=== PATIENT | male | born 1955 | race Caucasian/White ===

== ENCOUNTER 2019-05-20 20:53 | Inpatient (IN) | payer MEDICARE ==
[~2019-05-20] VITALS: Ht 172.7 cm; Wt 75.7 kg
[2019-05-20] MEDS ORDERED: LORAZEPAM 2MG/ML CPJ IV STA (23:44)
[2019-05-20] MEDS ORDERED: ONDANSETRON HCL 4MG/2ML INJ IV STA (23:44)
[2019-05-21] VITALS (15 sets, daily range): BP systolic 101–148; BP diastolic 21–83
[2019-05-21 00:28] LABS: HEMATOCRIT. 31.6 % (42.0-52.0); HEMOGLOBIN. 10.7 g/dL (14.0-18.0); MEAN CORPUSCULAR HEMOGLOBIN 32.9 pg (28.0-32.0); MEAN CORPUSCULAR VOLUME 97.1 fL (80.0-94.0); MEAN PLATELET VOLUME 8.8 fl (7.4-10.4); PLATELET 58 x1000/uL (130-400); RED BLOOD CELL COUNT 3.26 mill/uL (4.7-6.1); RED CELL DISTRIBUTION WIDTH 18.7 % (11.6-14.6)
[2019-05-21 00:33] LABS: INR 1.3; PROTHROMBIN TIME 14.4 sec (9.6-11.0)
[2019-05-21 00:34] LABS: CHLORIDE 96 mEq/L (98-107)
[2019-05-21 00:39] LABS: ETHANOL BLOOD < 10 mg/dL
[2019-05-21 00:58] LABS: PLATELET ESTIMATE MARKEDLY DECREASED
[2019-05-21 01:16] LABS: CLARITY URINE CLEAR (CLEAR); COLOR URINE DARK YELLOW (YELLOW); KETONES URINE NEGATIVE (NEGATIVE); LEUKOCYTE ESTERASE URINE TRACE (NEGATIVE); NITRITE URINE NEGATIVE (NEGATIVE); OCCULT BLOOD URINE 3+ (NEGATIVE); PROTEIN URINE 3+ (NEGATIVE); SPECIFIC GRAVITY URINE 1.021 (1.005-1.030)
[2019-05-21 01:26] LABS: *AMPHETAMINES SCREEN URINE NEGATIVE (NEGATIVE); *BARBITURATES SCREEN URINE NEGATIVE (NEGATIVE)
[2019-05-21 01:28] LABS: *BENZODIAZEPINES SCREEN URINE NEGATIVE (NEGATIVE); *COCAINE SCREEN URINE NEGATIVE (NEGATIVE); METHADONE URINE SCREEN NEGATIVE (NEGATIVE); OPIATES URINE SCREEN NEGATIVE (NEGATIVE); PHENCYCLIDINE URINE SCREEN NEGATIVE (NEGATIVE)
[2019-05-21 01:29] LABS: CANNABINOID URINE SCREEN NEGATIVE (NEGATIVE)
[2019-05-21] MEDS ORDERED: CEFTRIAXONE 1 G PREMIX 50 ML IV ONE (01:45)
[2019-05-21] MEDS ORDERED: METRONIDAZOLE 500 MG PREMIX 100 ML IV ONE (03:00)
[2019-05-21] MEDS ORDERED: CLINDAMYCIN 300 MG in DEXTROSE 5% WATER 50 ML IV ONE (04:45)
[2019-05-21] MEDS ORDERED: PIPERACILLIN/TAZ 3.375G PREMIX 50 ML IV SCH (07:30)
[2019-05-21] MEDS ORDERED: MAGNESIUM/ALUMINUM HYDROXIDE/SIMETHICONE 30ML UDC PO PRN (07:30)
[2019-05-21] MEDS ORDERED: DOCUSATE SODIUM 100MG CAPSULE PO PRN (07:30)
[2019-05-21] MEDS ORDERED: ONDANSETRON HCL 4MG/2ML INJ IV PRN (07:30)
[2019-05-21] MEDS ORDERED: GUAIFENESIN 200MG/10ML SUGAR FREE UDC PO PRN (07:30)
[2019-05-21] MEDS ORDERED: HYDROCODONE/ACETAMINOPHEN 10/325MG TABLET PO PRN (07:30)
[2019-05-21] MEDS ORDERED: LORAZEPAM 2MG/ML CPJ IV PRN (07:30)
[2019-05-21] MEDS ORDERED: ENOXAPARIN 40MG/0.4ML SYR SUBCUT SCH (07:30)
[2019-05-21] MEDS ORDERED: IPRATROPIUM/ALBUTEROL 0.5-3(2.5)MG/3ML NEB HHN PRN (07:30)
[2019-05-21] MEDS ORDERED: POTASSIUM CHLORIDE 20MEQ TABLET SR PO NR (08:00)
[2019-05-21] MEDS: PIPERACILLIN/TAZOBACTAM 3.375 G in DEXT 5% WATER 100 ML IV SCH ×2 (10:23→17:26)
[2019-05-21] MEDS: VANCOMYCIN 1250MG in DEXTROSE 5% WATER 250ML IV SCH (10:24)
[2019-05-21 17:23] LABS: CREATINE KINASE MB FRACTION 1.7 ng/mL (0.5-3.6)
[2019-05-21 17:24] LABS: T4 FREE 0.64 ng/dL (0.76-1.46)
[2019-05-21] MEDS: SODIUM CHLORIDE 0.9% INJ 3ML FLUSH IVF SCH ×2 (17:25→22:57)
[2019-05-22] VITALS (15 sets, daily range): BP systolic 104–139; BP diastolic 63–82
[2019-05-22] MEDS: ACETAMINOPHEN 325MG TABLET PO PRN ×2 (00:41→22:43)
[2019-05-22] MEDS: PIPERACILLIN/TAZOBACTAM 3.375 G in DEXT 5% WATER 100 ML IV SCH ×3 (01:05→17:00)
[2019-05-22] MEDS: VANCOMYCIN 1250MG in DEXTROSE 5% WATER 250ML IV SCH ×2 (02:52→15:54)
[2019-05-22] MEDS: SODIUM CHLORIDE 0.9% INJ 3ML FLUSH IVF SCH ×3 (06:05→21:32)
[2019-05-22 06:42] LABS: HEMATOCRIT. 27.2 % (42.0-52.0); HEMOGLOBIN. 9.6 g/dL (14.0-18.0); MEAN CORPUSCULAR HEMOGLOBIN 33.9 pg (28.0-32.0); MEAN CORPUSCULAR VOLUME 95.9 fL (80.0-94.0); MEAN PLATELET VOLUME 8.9 fl (7.4-10.4); PLATELET 58 x1000/uL (130-400); RED BLOOD CELL COUNT 2.84 mill/uL (4.7-6.1)
[2019-05-22 07:32] LABS: CHLORIDE 98 mEq/L (98-107)
[2019-05-22 08:07] LABS: PLATELET ESTIMATE DECREASED
[2019-05-22] MEDS ORDERED: POTASSIUM CHLORIDE 20MEQ TABLET SR PO NR (13:00)
[2019-05-23] VITALS (12 sets, daily range): BP systolic 127–159; BP diastolic 59–87
[2019-05-23] MEDS: PIPERACILLIN/TAZOBACTAM 3.375 G in DEXT 5% WATER 100 ML IV SCH ×2 (01:01→09:39)
[2019-05-23] MEDS: VANCOMYCIN 1250MG in DEXTROSE 5% WATER 250ML IV SCH (02:31)
[2019-05-23] MEDS: SODIUM CHLORIDE 0.9% INJ 3ML FLUSH IVF SCH ×3 (06:55→21:32)
[2019-05-23 07:24] LABS: HEMATOCRIT. 31.6 % (42.0-52.0); HEMOGLOBIN. 10.8 g/dL (14.0-18.0); MEAN CORPUSCULAR HEMOGLOBIN 33.3 pg (28.0-32.0); MEAN CORPUSCULAR VOLUME 97.1 fL (80.0-94.0); MEAN PLATELET VOLUME 9.1 fl (7.4-10.4); PLATELET 57 x1000/uL (130-400); RED BLOOD CELL COUNT 3.26 mill/uL (4.7-6.1); RED CELL DISTRIBUTION WIDTH 18.7 % (11.6-14.6)
[2019-05-23] MEDS: LEVOTHYROXINE SODIUM 25MCG TABLET PO SCH (07:30)
[2019-05-23] MEDS: LORAZEPAM 2MG/ML CPJ IV PRN (09:53)
[2019-05-23 10:13] LABS: PLATELET ESTIMATE DECREASED
[2019-05-23] MEDS ORDERED: HALOPERIDOL LACTATE 5MG/ML VIAL IM NR (13:23)
[2019-05-23] MEDS ORDERED: CEFTRIAXONE 2 G PREMIX 50 ML IV SCH (17:30)
[2019-05-23] MEDS: CLINDAMYCIN 600MG PREMIX 50 ML IV SCH (20:38)
[2019-05-23] MEDS: CEFTRIAXONE 2 G in DEXTROSE 5% WATER 50 ML IV SCH (20:39)
[2019-05-23] MEDS: HYDRALAZINE 20MG/ML VIAL IV PRN (21:34)
[2019-05-23] MEDS: MORPHINE SULFATE 2 MG/ML CPJ (NOT FOR IM USE) IV PRN (21:34)
[2019-05-23] MEDS: DIPHENHYDRAMINE 50MG/ML VIAL IV PRN (21:34)
[2019-05-24] VITALS (13 sets, daily range): BP systolic 111–164; BP diastolic 45–92
[2019-05-24] MEDS: DIPHENHYDRAMINE 50MG/ML VIAL IV PRN (03:06)
[2019-05-24] MEDS: MORPHINE SULFATE 2 MG/ML CPJ (NOT FOR IM USE) IV PRN (03:07)
[2019-05-24] MEDS: CLINDAMYCIN 600MG PREMIX 50 ML IV SCH ×3 (03:10→20:00)
[2019-05-24] MEDS: SODIUM CHLORIDE 0.9% INJ 3ML FLUSH IVF SCH ×3 (05:34→22:00)
[2019-05-24 07:04] LABS: HEMATOCRIT. 30.5 % (42.0-52.0); HEMOGLOBIN. 10.6 g/dL (14.0-18.0); MEAN CORPUSCULAR HEMOGLOBIN 33.1 pg (28.0-32.0); MEAN CORPUSCULAR VOLUME 95.6 fL (80.0-94.0); MEAN PLATELET VOLUME 8.3 fl (7.4-10.4); PLATELET 88 x1000/uL (130-400); RED BLOOD CELL COUNT 3.19 mill/uL (4.7-6.1); RED CELL DISTRIBUTION WIDTH 18.6 % (11.6-14.6)
[2019-05-24 07:56] LABS: CHLORIDE 102 mEq/L (98-107)
[2019-05-24 07:59] LABS: PHOSPHORUS 2.3 mg/dL (2.5-4.9)
[2019-05-24] MEDS: LEVOTHYROXINE SODIUM 25MCG TABLET PO SCH (08:26)
[2019-05-24 10:19] LABS: PLATELET ESTIMATE DECREASED
[2019-05-24] MEDS ORDERED: SODIUM PHOS,M-BASIC-D-BASIC 10 MM in DEXT 5% WATER 246.6667 ML IV NR (11:00)
[2019-05-24] MEDS: CLONIDINE 0.1MG TABLET PO PRN (15:35)
[2019-05-24] MEDS: HYDRALAZINE 20MG/ML VIAL IV PRN (16:01)
[2019-05-24] MEDS: CEFTRIAXONE 2 G in DEXTROSE 5% WATER 50 ML IV SCH (20:00)
[2019-05-25] VITALS (12 sets, daily range): BP systolic 129–161; BP diastolic 61–96
[2019-05-25] MEDS: CLINDAMYCIN 600MG PREMIX 50 ML IV SCH ×2 (06:44→13:46)
[2019-05-25] MEDS: SODIUM CHLORIDE 0.9% INJ 3ML FLUSH IVF SCH ×3 (06:45→20:26)
[2019-05-25 07:02] LABS: HEMATOCRIT. 28.9 % (42.0-52.0); HEMOGLOBIN. 10.1 g/dL (14.0-18.0); MEAN CORPUSCULAR HEMOGLOBIN 33.3 pg (28.0-32.0); MEAN CORPUSCULAR VOLUME 95.5 fL (80.0-94.0); MEAN PLATELET VOLUME 8.4 fl (7.4-10.4); PLATELET 120 x1000/uL (130-400); RED BLOOD CELL COUNT 3.02 mill/uL (4.7-6.1); RED CELL DISTRIBUTION WIDTH 18.5 % (11.6-14.6)
[2019-05-25] MEDS: LEVOTHYROXINE SODIUM 25MCG TABLET PO SCH (08:39)
[2019-05-25] MEDS: CLONIDINE 0.1MG TABLET PO PRN (08:44)
[2019-05-25 11:47] LABS: PLATELET ESTIMATE SLIGHTLY DECREASED
[2019-05-25 12:10] LABS: CREATINE KINASE 432 IU/L (39-308)
[2019-05-25] MEDS: LORAZEPAM 2MG/ML CPJ IV PRN (18:57)
[2019-05-25] MEDS: CEFTRIAXONE 1 G PREMIX 50 ML IV SCH (20:23)
[2019-05-26] VITALS (12 sets, daily range): BP systolic 75–156; BP diastolic 49–93
[2019-05-26] MEDS: DIPHENHYDRAMINE 50MG/ML VIAL IV PRN ×2 (03:20→20:21)
[2019-05-26] MEDS: SODIUM CHLORIDE 0.9% INJ 3ML FLUSH IVF SCH ×3 (05:40→22:26)
[2019-05-26 06:49] LABS: HEMATOCRIT. 30.7 % (42.0-52.0); HEMOGLOBIN. 10.6 g/dL (14.0-18.0); MEAN CORPUSCULAR HEMOGLOBIN 32.8 pg (28.0-32.0); MEAN CORPUSCULAR VOLUME 95.6 fL (80.0-94.0); MEAN PLATELET VOLUME 8.5 fl (7.4-10.4); PLATELET 159 x1000/uL (130-400); RED BLOOD CELL COUNT 3.21 mill/uL (4.7-6.1); RED CELL DISTRIBUTION WIDTH 18.9 % (11.6-14.6)
[2019-05-26 07:05] LABS: CHLORIDE 102 mEq/L (98-107)
[2019-05-26] MEDS: LEVOTHYROXINE SODIUM 25MCG TABLET PO SCH (08:39)
[2019-05-26 08:58] LABS: PLATELET ESTIMATE NORMAL
[2019-05-26] MEDS: LORAZEPAM 2MG/ML CPJ IV PRN (20:21)
[2019-05-26] MEDS: CEFTRIAXONE 1 G PREMIX 50 ML IV SCH (20:21)
[2019-05-27] VITALS (12 sets, daily range): BP systolic 109–160; BP diastolic 63–92
[2019-05-27] MEDS: LORAZEPAM 2MG/ML CPJ IV PRN (01:35)
[2019-05-27] MEDS: DIPHENHYDRAMINE 50MG/ML VIAL IV PRN (01:35)
[2019-05-27 06:46] LABS: HEMATOCRIT. 30.3 % (42.0-52.0); HEMOGLOBIN. 10.5 g/dL (14.0-18.0); MEAN CORPUSCULAR HEMOGLOBIN 33.4 pg (28.0-32.0); MEAN CORPUSCULAR VOLUME 95.9 fL (80.0-94.0); MEAN PLATELET VOLUME 8.5 fl (7.4-10.4); PLATELET 193 x1000/uL (130-400); RED BLOOD CELL COUNT 3.16 mill/uL (4.7-6.1); RED CELL DISTRIBUTION WIDTH 18.8 % (11.6-14.6)
[2019-05-27] MEDS: SODIUM CHLORIDE 0.9% INJ 3ML FLUSH IVF SCH ×3 (06:50→21:13)
[2019-05-27 07:19] LABS: CHLORIDE 102 mEq/L (98-107)
[2019-05-27] MEDS: LEVOTHYROXINE SODIUM 25MCG TABLET PO SCH (08:12)
[2019-05-27 10:49] LABS: PLATELET ESTIMATE NORMAL
[2019-05-27] MEDS: ENOXAPARIN 40MG/0.4ML SYR SUBCUT SCH (17:40)
[2019-05-27] MEDS: CEFTRIAXONE 1 G PREMIX 50 ML IV SCH (21:13)
[2019-05-28] VITALS (11 sets, daily range): BP systolic 103–178; BP diastolic 59–81
[2019-05-28] MEDS: SODIUM CHLORIDE 0.9% INJ 3ML FLUSH IVF SCH ×2 (06:20→13:45)
[2019-05-28 07:21] LABS: HEMATOCRIT. 32.5 % (42.0-52.0); MEAN CORPUSCULAR HEMOGLOBIN 32.8 pg (28.0-32.0); MEAN CORPUSCULAR VOLUME 96.8 fL (80.0-94.0); MEAN PLATELET VOLUME 8.2 fl (7.4-10.4); PLATELET 202 x1000/uL (130-400); RED BLOOD CELL COUNT 3.36 mill/uL (4.7-6.1); RED CELL DISTRIBUTION WIDTH 18.9 % (11.6-14.6)
[2019-05-28 07:33] LABS: CHLORIDE 105 mEq/L (98-107)
[2019-05-28] MEDS: LEVOTHYROXINE SODIUM 25MCG TABLET PO SCH (08:58)
[2019-05-28] MEDS: FOLIC ACID 1MG TABLET PO SCH (13:55)
[2019-05-28] MEDS: THIAMINE HCL 100MG TABLET PO SCH (13:55)
[2019-05-28 14:00] LABS: PLATELET ESTIMATE NORMAL
[2019-05-28] MEDS: ENOXAPARIN 40MG/0.4ML SYR SUBCUT SCH (16:00)
[2019-05-28] MEDS ORDERED: HYDRALAZINE 10 MG in SODIUM CHLORIDE 0.9% 49.5 ML IV PRN (20:00)
[2019-05-28] MEDS: CLONIDINE 0.1MG TABLET PO PRN (20:37)
[2019-05-28] MEDS: CEFTRIAXONE 1 G PREMIX 50 ML IV SCH (22:42)
[2019-05-29] VITALS: BP 150/63
[2019-05-29] MEDS: SODIUM CHLORIDE 0.9% INJ 3ML FLUSH IVF SCH ×4 (00:40→23:21)
[2019-05-29 04:00] VITALS: BP 140/60
[2019-05-29] MEDS: LEVOTHYROXINE SODIUM 25MCG TABLET PO SCH (06:39)
[2019-05-29 06:59] LABS: HEMATOCRIT. 29.2 % (42.0-52.0); HEMOGLOBIN. 10.3 g/dL (14.0-18.0); MEAN CORPUSCULAR HEMOGLOBIN 33.6 pg (28.0-32.0); MEAN CORPUSCULAR VOLUME 95.3 fL (80.0-94.0); MEAN PLATELET VOLUME 7.9 fl (7.4-10.4); PLATELET 205 x1000/uL (130-400); RED BLOOD CELL COUNT 3.06 mill/uL (4.7-6.1)
[2019-05-29 07:52] LABS: CHLORIDE 105 mEq/L (98-107)
[2019-05-29 08:00] VITALS: BP 159/68
[2019-05-29] MEDS: THIAMINE HCL 100MG TABLET PO SCH (08:28)
[2019-05-29] MEDS: FOLIC ACID 1MG TABLET PO SCH (08:28)
[2019-05-29 09:26] LABS: PLATELET ESTIMATE NORMAL
[2019-05-29 12:00] VITALS: BP 149/73
[2019-05-29] MEDS: ENOXAPARIN 40MG/0.4ML SYR SUBCUT SCH (15:15)
[2019-05-29 16:00] VITALS: BP 145/71
[2019-05-29] MEDS: CEFTRIAXONE 1 G PREMIX 50 ML IV SCH (19:58)
[2019-05-29 20:00] VITALS: BP 152/73
[2019-05-29] MEDS: ACETAMINOPHEN 325MG TABLET PO PRN (20:44)
[2019-05-30] VITALS: BP 131/61
[2019-05-30 04:00] VITALS: BP 146/69
[2019-05-30] MEDS: LEVOTHYROXINE SODIUM 25MCG TABLET PO SCH (06:31)
[2019-05-30] MEDS: SODIUM CHLORIDE 0.9% INJ 3ML FLUSH IVF SCH ×2 (06:33→13:00)
[2019-05-30 08:00] VITALS: BP 163/77
[2019-05-30] MEDS: THIAMINE HCL 100MG TABLET PO SCH (09:23)
[2019-05-30] MEDS: FOLIC ACID 1MG TABLET PO SCH (09:23)
[2019-05-30] MEDS: CLONIDINE 0.1MG TABLET PO PRN (09:23)
[2019-05-30 12:00] VITALS: BP 134/66
[2019-05-30 16:00] VITALS: BP 164/73
[2019-05-30] MEDS: ENOXAPARIN 40MG/0.4ML SYR SUBCUT SCH (16:19)
[2019-05-30 20:00] VITALS: BP 141/68
[2019-05-30] MEDS: CEFTRIAXONE 1 G PREMIX 50 ML IV SCH (21:45)
[2019-05-31] VITALS: BP 157/81
[2019-05-31 04:00] VITALS: BP 157/71
[2019-05-31] MEDS: LEVOTHYROXINE SODIUM 25MCG TABLET PO SCH (06:37)
[2019-05-31 07:27] LABS: BASOPHILS % 1.7 % (0.0-2.0); EOSINOPHILS % 3.1 % (0.0-5.0); HEMATOCRIT. 29.2 % (42.0-52.0); HEMOGLOBIN. 10.1 g/dL (14.0-18.0); LYMPHOCYTES % 34.7 % (20.0-50.0); MEAN CORPUSCULAR HEMOGLOBIN 33.3 pg (28.0-32.0); MEAN CORPUSCULAR VOLUME 96.3 fL (80.0-94.0); MEAN PLATELET VOLUME 8.2 fl (7.4-10.4); MONOCYTES % 14.8 % (2.0-8.0); NEUTROPHILS % 45.7 % (40.0-76.0); PLATELET 191 x1000/uL (130-400); RED BLOOD CELL COUNT 3.04 mill/uL (4.7-6.1); RED CELL DISTRIBUTION WIDTH 18.2 % (11.6-14.6)
[2019-05-31 07:31] LABS: CHLORIDE 106 mEq/L (98-107)
[2019-05-31 08:00] VITALS: BP 131/69
[2019-05-31] MEDS: THIAMINE HCL 100MG TABLET PO SCH (08:56)
[2019-05-31] MEDS: FOLIC ACID 1MG TABLET PO SCH (08:56)
[2019-05-31 12:00] VITALS: BP 144/73
[2019-05-31] MEDS: SODIUM CHLORIDE 0.9% INJ 3ML FLUSH IVF SCH ×2 (14:03→21:39)
[2019-05-31 16:00] VITALS: BP 129/71
[2019-05-31] MEDS: ENOXAPARIN 40MG/0.4ML SYR SUBCUT SCH (16:17)
[2019-05-31 20:00] VITALS: BP 127/70
[2019-05-31] MEDS: CEFTRIAXONE 1 G PREMIX 50 ML IV SCH (21:39)
[2019-06-01] VITALS: BP 137/68
[2019-06-01] MEDS: ACETAMINOPHEN 325MG TABLET PO PRN (02:13)
[2019-06-01 04:00] VITALS: BP 128/68
[2019-06-01] MEDS: SODIUM CHLORIDE 0.9% INJ 3ML FLUSH IVF SCH ×2 (06:30→20:29)
[2019-06-01] MEDS: FOLIC ACID 1MG TABLET PO SCH (08:46)
[2019-06-01] MEDS: THIAMINE HCL 100MG TABLET PO SCH (08:46)
[2019-06-01] MEDS: LEVOTHYROXINE SODIUM 25MCG TABLET PO SCH (08:46)
[2019-06-01 12:00] VITALS: BP 155/76
[2019-06-01] MEDS: ENOXAPARIN 40MG/0.4ML SYR SUBCUT SCH (15:36)
[2019-06-01 16:00] VITALS: BP_SYST 157; BP_SYST 163; BP_DIAS 74; BP_DIAS 76
[2019-06-01 20:00] VITALS: BP 172/83
[2019-06-01] MEDS: CLONIDINE 0.1MG TABLET PO PRN (20:28)
[2019-06-01] MEDS: CEFTRIAXONE 1 G PREMIX 50 ML IV SCH (20:29)
[2019-06-02] VITALS: BP 143/64
[2019-06-02 04:00] VITALS: BP 138/74
[2019-06-02] MEDS: SODIUM CHLORIDE 0.9% INJ 3ML FLUSH IVF SCH ×3 (06:29→21:15)
[2019-06-02] MEDS: LEVOTHYROXINE SODIUM 25MCG TABLET PO SCH (06:29)
[2019-06-02 06:57] LABS: BASOPHILS % 1.2 % (0.0-2.0); EOSINOPHILS % 3.3 % (0.0-5.0); HEMATOCRIT. 28.7 % (42.0-52.0); HEMOGLOBIN. 9.9 g/dL (14.0-18.0); LYMPHOCYTES % 35.5 % (20.0-50.0); MEAN CORPUSCULAR HEMOGLOBIN 33.3 pg (28.0-32.0); MEAN CORPUSCULAR VOLUME 96.6 fL (80.0-94.0); MEAN PLATELET VOLUME 8.3 fl (7.4-10.4); MONOCYTES % 13.4 % (2.0-8.0); NEUTROPHILS % 46.6 % (40.0-76.0); PLATELET 181 x1000/uL (130-400); RED BLOOD CELL COUNT 2.97 mill/uL (4.7-6.1)
[2019-06-02 06:59] LABS: CHLORIDE 102 mEq/L (98-107)
[2019-06-02 08:00] VITALS: BP 156/75
[2019-06-02 12:00] VITALS: BP 160/71
[2019-06-02 16:00] VITALS: BP 133/79
[2019-06-02] MEDS: ENOXAPARIN 40MG/0.4ML SYR SUBCUT SCH (16:34)
[2019-06-02 20:00] VITALS: BP 181/80
[2019-06-02] MEDS: CLONIDINE 0.1MG TABLET PO PRN (20:45)
[2019-06-03] VITALS: BP 133/72
[2019-06-03 04:00] VITALS: BP 137/63
[2019-06-03] MEDS: SODIUM CHLORIDE 0.9% INJ 3ML FLUSH IVF SCH ×2 (05:14→14:00)
[2019-06-03] MEDS: LEVOTHYROXINE SODIUM 25MCG TABLET PO SCH (06:34)
[2019-06-03 08:00] VITALS: BP 136/77
[2019-06-03 09:04] VITALS: BP 136/77
[2019-06-03 12:00] VITALS: BP 123/62
[2019-06-03] MEDS: ENOXAPARIN 40MG/0.4ML SYR SUBCUT SCH (15:28)
[2019-06-03 16:00] VITALS: BP 158/76
== END 2019-06-03 17:00 | disposition home or self-care (01) | DRG 871 ==
LOC: ER 20:53 → 5EST 05-21 02:59 → EDBEDREQ 05-21 03:04 → EDBEDREQTM 05-21 03:04 → ENRESERV 05-21 04:50 → 6EST 05-28 17:35
PROVIDERS: ADMIT Internal Medicine; ATTEND Internal Medicine
DX: A40.0 Sepsis due to streptococcus, group A (principal); N17.0 Acute kidney failure with tubular necrosis; E46 Unspecified protein-calorie malnutrition; E87.1 Hypo-osmolality and hyponatremia; M62.82 Rhabdomyolysis; L03.116 Cellulitis of left lower limb; L03.115 Cellulitis of right lower limb; G93.40 Encephalopathy, unspecified; D68.9 Coagulation defect, unspecified; E87.6 Hypokalemia; D64.9 Anemia, unspecified; E03.9 Hypothyroidism, unspecified; D69.6 Thrombocytopenia, unspecified; N18.9 Chronic kidney disease, unspecified; K70.30 Alcoholic cirrhosis of liver without ascites; E11.22 Type 2 diabetes mellitus with diabetic chronic kidney disease; K44.9 Diaphragmatic hernia without obstruction or gangrene; A40.1 Sepsis due to streptococcus, group B; Z68.25 Body mass index [BMI] 25.0-25.9, adult; Z79.899 Other long term (current) drug therapy; Z78.1 Physical restraint status
CPT/HCPCS: 36415; 70551; 71045; 74176; 80048; 80053; 80061; 80202; 80305; 80320; 81003; 82140; 82550; 82553; 82962; 83036; 83605; 83735; 83880; 84100; 84145; 84439; 84443; 84484; 85025; 85379; 86850; 86900; 87077; 87186; 93005; 93306; 93970; 97162; 99291; J0360; J0696; J1200; J1650; J2060; J2270; J2405; J2543; J3370; J3490; J7060; G0480